=== PATIENT | male | born 1990 | race Caucasian/White ===

== ENCOUNTER 2016-08-27 12:05 | Emergency (ER) | payer BC, OTHER ==
[~2016-08-27] VITALS: Ht 182.9 cm; Wt 82.0 kg
[~2016-08-27 12:05] MED LIST: CYCL1TAB29 PO; IBUP800T23 PO; ZOFR4TAB3 SL
[2016-08-27 12:14] VITALS: BP 129/70; PULSE 102; RESP 24; TEMP 98.9; O2SAT 97
--- NOTE | 2016-08-27 12:20 | PD ---
HPI Chief Complaint: Medical Clearance Time Seen by Provider: 12:20 Travel History International Travel<30 days: No Contact w/Intl Traveler<30days: No Traveled to known affect area: No History of Present Illness HPI 25-year-old male came to the emergency room since she has been withdrawing from heroin. Patient says that he's been using opiates since he was 14 years old. His last dose of heroin was last night at 8 PM. He has been yawning and shivering as he is talking to me. Seems uncomfortable. I asked the patient if he tried going to [facility] for the drug rehabilitation and he said he doesn't like that place and he would prefer a different drug rehabilitation program. PFSH Past Medical History Narrative Medical List of his past medical history as reviewed from the nursing note. Diminished Hearing: No Immunizations Current: Yes Social History Alcohol Use: Yes Tobacco Use: Yes Substance Use: Yes (alot of different drugs used) Allergies-Medications (Allergen,Severity, Reaction): Coded Allergies: No Known Allergies (Unverified , 08/27/16) Comments No known drug allergies. Reported Meds & Prescriptions Reported Meds & Active Scripts Active Vistaril (Hydroxyzine Pamoate) 50 Mg Cap 50 Mg PO TID Zofran Odt (Ondansetron Odt) 4 Mg Tab 4 Mg SL Q6HR PRN 3 Days Narrative Medication List of his past medical history is reviewed from the nursing note. Review of Systems Except as stated in HPI: all other systems reviewed are Neg Physical Exam Narrative GENERAL: Lethargic, shivering and yawning, moderate distress SKIN: Warm and dry. HEAD: Atraumatic. Normocephalic. EYES: Pupils equal and round. No scleral icterus. No injection or drainage. ENT: No nasal bleeding or discharge. Mucous membranes pink and moist. NECK: Trachea midline. No JVD. CARDIOVASCULAR: Regular rate and rhythm. No murmur appreciated. RESPIRATORY: No accessory muscle use. Clear to auscultation. Breath sounds equal bilaterally. GASTROINTESTINAL: Abdomen soft, non-tender, nondistended. Hepatic and splenic margins not palpable. MUSCULOSKELETAL: No obvious deformities. No clubbing. No cyanosis. No edema. NEUROLOGICAL: Awake and alert. No obvious cranial nerve deficits. Motor grossly within normal limits. Normal speech. PSYCHIATRIC: Appropriate mood and affect; insight and judgment normal. Data Data Last Documented VS Vital Signs Date Time Temp Pulse Resp B/P Pulse Ox O2 Delivery O2 Flow Rate FiO2 08/27/16 13:23 81 16 127/67 100 Room Air 08/27/16 12:14 98.9 Orders Electrocardiogram (08/27/16 ) Complete Blood Count With Diff (08/27/16 12:47) Basic Metabolic Panel (Bmp) (08/27/16 12:47) Alcohol (Ethanol) (08/27/16 12:47) Sodium Chlor 0.9% 1000 Ml Inj (Ns 1000 M (08/27/16 13:00) Ondansetron Inj (Zofran Inj) (08/27/16 13:00) Clonidine (Catapres) (08/27/16 13:00) Hydroxyzine Hcl (Atarax) (08/27/16 13:00) Labs Laboratory Tests Test 08/27/16 12:55 White Blood Count 7.7 TH/MM3 Red Blood Count 5.21 MIL/MM3 Hemoglobin 15.2 GM/DL Hematocrit 44.5 % Mean Corpuscular Volume 85.4 FL Mean Corpuscular Hemoglobin 29.2 PG Mean Corpuscular Hemoglobin 34.2 % Concent Red Cell Distribution Width 13.1 % Platelet Count 252 TH/MM3 Mean Platelet Volume 8.3 FL Neutrophils (%) (Auto) 76.2 % Lymphocytes (%) (Auto) 14.1 % Monocytes (%) (Auto) 9.0 % Eosinophils (%) (Auto) 0.5 % Basophils (%) (Auto) 0.2 % Neutrophils # (Auto) 5.8 TH/MM3 Lymphocytes # (Auto) 1.1 TH/MM3 Monocytes # (Auto) 0.7 TH/MM3 Eosinophils # (Auto) 0.0 TH/MM3 Basophils # (Auto) 0.0 TH/MM3 CBC Comment DIFF FINAL Differential Comment Sodium Level 139 MEQ/L Potassium Level 3.5 MEQ/L Chloride Level 105 MEQ/L Carbon Dioxide Level 25.3 MEQ/L Anion Gap 9 MEQ/L Blood Urea Nitrogen 13 MG/DL Creatinine 1.12 MG/DL Estimat Glomerular Filtration 79 ML/MIN Rate Random Glucose 109 MG/DL Calcium Level 9.9 MG/DL Ethyl Alcohol Level LESS THAN 3 MG/DL MDM Medical Decision Making Medical Screen Exam Complete: Yes Emergency Medical Condition: Yes Medical Record Reviewed: Yes Interpretation(s) Twelve-lead EKG was reviewed by me. Normal sinus rhythm, normal axis, nonspecific ST-T wave changes, possible LVH by voltage criteria. Heart rate of 85 bpm. Differential Diagnosis Heroine withdrawal, opiate withdrawal Narrative Course 1:03 PM patient will be getting IV fluids and medication to support withdrawal which are mostly nonnarcotic. Awaiting for the blood test results to come back. 2:07 PM blood test results came back and they're within normal limit. Parents are here and they would like to take him to a detox place. I'm comfortable discharging him home with them. Procedures EKG Prior to Arrival: No Diagnosis Primary Impression: Opiate withdrawal Referrals: Primary Care Physician 2 days Additional Instructions: Please try to check into a drug rehabilitation program. Return to the emergency room if the condition worsens or any other new concerns. Med/Other Pt SpecificInfo: Prescription(s) given Scripts Hydroxyzine Pamoate (Vistaril)50 Mg Cap50 Mg PO TID #30 CAP Ref 0 Prov:Sukhi Cline MD 08/27/16 Ondansetron Odt (Zofran Odt)4 Mg Tab4 Mg SL Q6HR PRN (Nausea/Vomiting) 3 Days Ref 0 Prov:Sukhi Cline MD 08/27/16 Disposition: 01 DISCHARGE HOME Condition: Stable Sukhi Cline MD Aug 27, 2016 12:20 Sukhi Cline MD Aug 27, 2016 12:20
[2016-08-27 12:29] VITALS: BP 126/77; PULSE 90; RESP 16; O2SAT 100
[2016-08-27] MEDS ORDERED: ONDANSETRON HCL 4 MG/2 ML VIAL IV PUSH ONE (13:00)
[2016-08-27] MEDS ORDERED: hydrOXYzine HCL 50 MG TAB PO ONE (13:00)
[2016-08-27] MEDS ORDERED: cloNIDine HCL 0.1 MG TAB PO ONE (13:00)
[2016-08-27] MEDS ORDERED: SODIUM CHLOR 0.9% 1000 ML INJ 1,000 ML IV ONE (13:00)
[2016-08-27 13:04] LABS: AUTOMATED NEUTROPHIL # 5.8 TH/MM3 (1.8-7.7); BASOPHIL % 0.2 % (0.0-2.0); EOSINOPHIL % 0.5 % (0.0-4.0); HEMATOCRIT 44.5 % (39.0-51.0); HEMO FLAGS DIFF FINAL; LYMPH % 14.1 % (9.0-44.0); LYMPHOCYTE # 1.1 TH/MM3 (1.0-4.8); MEAN CELL VOLUME 85.4 FL (80.0-100.0); MEAN CORPUSCULAR HEMOGLOBIN 29.2 PG (27.0-34.0); MEAN CORPUSCULAR HGB CONC 34.2 % (32.0-36.0); NEUT % 76.2 % (16.0-70.0); PLATELET COUNT 252 TH/MM3 (150-450); RED BLOOD COUNT 5.21 MIL/MM3 (4.50-5.90); RED CELL DISTRIBUTION WIDTH 13.1 % (11.6-17.2); WHITE BLOOD COUNT 7.7 TH/MM3 (4.0-11.0)
[2016-08-27 13:23] VITALS: BP 127/67; PULSE 81; RESP 16; O2SAT 100
[2016-08-27 13:27] LABS: ANION GAP 9 MEQ/L (5-15); BICARBONATE 25.3 MEQ/L (21.0-32.0); BLOOD UREA NITROGEN 13 MG/DL (7-18); CHLORIDE 105 MEQ/L (98-107); GLOMERULAR FILTRATION RATE 79 ML/MIN (>89); POTASSIUM 3.5 MEQ/L (3.5-5.1); SODIUM (NA) 139 MEQ/L (136-145)
[2016-08-27] MEDS ORDERED: VIST50CA PO (14:08)
[2016-08-27] MEDS ORDERED: ZOFR4TAB3 SL (14:08)
--- NOTE | 2016-08-28 10:06 | EKG ---
Date Performed: 08/27/2016 Time Performed: 12:27:59 PTAGE: 25 years EKG: Sinus rhythm MINIMAL VOLTAGE CRITERIA FOR LVH, CONSIDER NORMAL VARIANT BORDERLINE ECG NO PREVIOUS TRACING DOCTOR: Tre Trotter Interpretating Date/Time 08/28/2016 10:03:22
== END 2016-08-27 14:27 | disposition home or self-care (01) ==
LOC: NEPA 12:05
DX: F11.23 Opioid dependence with withdrawal (principal); R94.31 Abnormal electrocardiogram [ECG] [EKG]; Z72.0 Tobacco use
CPT/HCPCS: 80048; 80320; 85025; 93005; 96361; 96374; 99283; J2405; J7030

== ENCOUNTER 2016-12-22 13:44 | Emergency (ER) | payer BC ==
[~2016-12-22] VITALS: Ht 182.9 cm; Wt 85.0 kg
[~2016-12-22 13:44] MED LIST changes: -CYCL1TAB29 PO; -IBUP800T23 PO; +VIST50CA PO
[2016-12-22 13:54] VITALS: BP 134/79; PULSE 98; RESP 16; TEMP 98.9; O2SAT 95
[2016-12-22 13:56] VITALS: BP 134/79; PULSE 103; RESP 12; O2SAT 98
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
[2016-12-22] MEDS ORDERED: NALOXONE HCL 2 MG/2 ML VIAL IV PUSH ONE (14:15)
[2016-12-22 14:29] LABS: AUTOMATED NEUTROPHIL # 4.9 TH/MM3 (1.8-7.7); BASOPHIL % 0.3 % (0.0-2.0); EOSINOPHIL # 0.2 TH/MM3 (0-0.4); EOSINOPHIL % 2.6 % (0.0-4.0); HEMATOCRIT 41.9 % (39.0-51.0); HEMO FLAGS DIFF FINAL; LYMPH % 20.5 % (9.0-44.0); LYMPHOCYTE # 1.5 TH/MM3 (1.0-4.8); MEAN CELL VOLUME 87.5 FL (80.0-100.0); MEAN CORPUSCULAR HGB CONC 33.1 % (32.0-36.0); MONO % 10.6 % (0.0-8.0); PLATELET COUNT 225 TH/MM3 (150-450); RED BLOOD COUNT 4.79 MIL/MM3 (4.50-5.90); RED CELL DISTRIBUTION WIDTH 14.1 % (11.6-17.2); WHITE BLOOD COUNT 7.4 TH/MM3 (4.0-11.0)
[2016-12-22 14:42] LABS: ANION GAP 7 MEQ/L (5-15); BICARBONATE 29.3 MEQ/L (21.0-32.0); BLOOD UREA NITROGEN 15 MG/DL (7-18); CHLORIDE 105 MEQ/L (98-107); GLOMERULAR FILTRATION RATE 91 ML/MIN (>89); POTASSIUM 3.9 MEQ/L (3.5-5.1); SODIUM (NA) 141 MEQ/L (136-145)
[2016-12-22 15:06] LABS: AMPHETAMINE, URINE NEG (NEG); BARBITURATES, URINE NEG (NEG); COCAINE, URINE NEG (NEG)
[2016-12-22 15:20] VITALS: BP 127/59; PULSE 77; RESP 12; O2SAT 97
== END 2016-12-22 17:24 | disposition home or self-care (01) ==
LOC: NEPC 13:44
DX: T40.1X1A Poisoning by heroin, accidental (unintentional), initial encounter (principal); F17.210 Nicotine dependence, cigarettes, uncomplicated
CPT/HCPCS: 80048; 80307; 85025; 96374; 99284; J2310

== ENCOUNTER 2017-03-03 12:13 | Emergency (ER) | payer BC ==
[~2017-03-03] VITALS: Ht 182.9 cm; Wt 84.0 kg
[2017-03-03 12:18] VITALS: BP 138/63; PULSE 102; RESP 16; TEMP 98.6; O2SAT 100
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
[2017-03-03 15:00] VITALS: BP 138/75
--- NOTE | 2017-03-03 18:52 | EKG ---
Date Performed: 03/03/2017 Time Performed: 12:23:44 PTAGE: 26 years EKG: Sinus rhythm NORMAL ECG PREVIOUS TRACING : 08/27/2016 12.27 No significant change from previous tracing noted. DOCTOR: Gagan Pruitt Interpretating Date/Time 03/03/2017 18:50:45
== END 2017-03-03 15:01 | disposition home or self-care (01) ==
LOC: NEPE 12:13
DX: F10.10 Alcohol abuse, uncomplicated (principal); F17.290 Nicotine dependence, other tobacco product, uncomplicated
CPT/HCPCS: 93005; 99283

== ENCOUNTER 2017-03-08 12:16 | Emergency (ER) | payer BC, OTHER ==
[~2017-03-08] VITALS: Ht 182.9 cm; Wt 80.0 kg
[2017-03-08 12:31] VITALS: BP 134/78; PULSE 91; RESP 18; TEMP 98.1; O2SAT 99
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
== END 2017-03-08 13:50 | disposition home or self-care (01) ==
LOC: NEPD 12:16
DX: F11.10 Opioid abuse, uncomplicated (principal)
CPT/HCPCS: 99281